=== PATIENT | female | born 1960 | race Caucasian/White ===

== ENCOUNTER 2018-06-19 19:22 | Emergency (ER) | payer OTHER ==
[~2018-06-19] VITALS: Ht 160 cm; Wt 101.5 kg
--- NOTE | 2018-06-19 19:57 | NUR ---
[facility]/ERYTHEMA AND SWELLING RIGHT SIDE OF FACE AT THE JAW. PT STATES IT LOOKED LIKE A PIMPLE YESTERDAY AND SWELLING INCREASED SINCE THEN.
[2018-06-19] MEDS ORDERED: AMLO1CAP15 PO (20:06)
[2018-06-19] MEDS ORDERED: OXYC10TA6 PO (20:06)
[2018-06-19] MEDS ORDERED: TRIA1CAP3 PO (20:06)
[2018-06-19] MEDS ORDERED: MORP30TA81 PO (20:06)
--- NOTE | 2018-06-19 20:10 | NUR ---
REPORT FROM MAKI SCHULTZ MD AT BEDSIDE. WAITING FOR ORDERS.
[2018-06-19] MEDS ORDERED: SULFAMETH./TRIMETHOPRIM DS 800MG/160MG TABLET ONE (20:21)
[2018-06-19] MEDS ORDERED: CEFTRIAXONE 1,000 MG ONE (20:21)
[2018-06-19] MEDS ORDERED: CEFTRIAXONE 1,000 MG IM ONE (20:30)
[2018-06-19] MEDS ORDERED: SULFAMETH./TRIMETHOPRIM DS 800MG/160MG TABLET PO ONE (20:30)
[2018-06-19 20:49] VITALS: BP 151/82
--- NOTE | 2018-06-19 20:51 | NUR ---
PT MEDICATED. VSS. PT TO BE DISCHARGED
--- NOTE | 2018-06-19 21:17 | NUR ---
Patient given discharge instructions and they have confirmed that they understand the instructions. Patient ambulatory with steady gait.
== END 2018-06-19 21:19 | disposition home or self-care (01) ==
LOC: ED 20:35
DX: L03.211 Cellulitis of face (principal); I10 Essential (primary) hypertension
CPT/HCPCS: 96372; 99284; J0696

== ENCOUNTER 2018-06-23 16:17 | Emergency (ER) | payer OTHER ==
[~2018-06-23] VITALS: Ht 160 cm; Wt 102.3 kg
[~2018-06-23 16:17] MED LIST: AMLO1CAP15 PO; MORP30TA81 PO; OXYC10TA6 PO; TRIA1CAP3 PO
[2018-06-23 17:04] LABS: BASOPHILS # (AUTO) 0.03 x10^3/uL (0-0.1); BASOPHILS % (AUTO) 1 % (0-1); EOSINOPHILS # (AUTO) 0.71 x10^3/uL (0-0.4); EOSINOPHILS % (AUTO) 10 % (1-7); LYMPHOCYTES # (AUTO) 2.53 x10^3/uL (1-3.4); LYMPHOCYTES % (AUTO) 34 % (22-44); MD NO; MEAN CORPUSCULAR HEMOGLOBIN 28.2 pg (27.0-34.8); MEAN CORPUSCULAR HGB CONC 32.4 g/dL (32.4-35.8); MEAN CORPUSCULAR VOLUME 87.1 fL (80-100); MEAN PLATELET VOLUME 7.1 fL (7.4-10.4); MONOCYTES # (AUTO) 0.58 x10^3/uL (0.2-0.8); MONOCYTES % (AUTO) 8 % (2-9); NEUTROPHILS # (AUTO) 3.51 x10^3/uL (1.8-6.8); NEUTROPHILS % (AUTO) 48 % (42-75); PLATELET COUNT 300 x10^3/uL (130-400); RED BLOOD COUNT 5.25 x10^6/uL (3.82-5.3); RED CELL DISTRIBUTION WIDTH 13.7 % (9.6-15.2)
[2018-06-23 17:13] LABS: ANION GAP 7 mmol/L (5-15); CALCIUM 9.2 mg/dL (8.5-10.1); CHLORIDE 106 mmol/L (98-107)
[2018-06-23 17:14] LABS: CREATININE 0.77 mg/dL (0.55-1.02)
--- NOTE | 2018-06-23 17:33 | NUR ---
FROM LOBBY TO ROOM AT THIS TIME
--- NOTE | 2018-06-23 17:35 | NUR ---
Pt ambulated to room from triage with steady gait and balance. NADN. No obvious defecits observed.
--- NOTE | 2018-06-23 19:13 | NUR ---
REPORT FROM NOVA LADD. ASSUMED CARE OF PATIENT AT THIS TIME.
--- NOTE | 2018-06-23 19:20 | NUR ---
VS UPDATED IN CHART, PATIENT HAVING 7/10 PAIN, MD AWARE. MEDICATIONS TO BE ADMINISTERED AFTER ORDER PUT IN CHART. FAMILY/PATIENT UPDATED ON POC. PATIENT SITTING IN GURNEY WATCHING TV WITH SPOUSE AT BEDSIDE, CALL LIGHT WITHIN REACH. AWAITING CT.
[2018-06-23] MEDS ORDERED: ONDANSETRON 2MG/ML, 2ML ONE (19:23)
[2018-06-23] MEDS ORDERED: MORPHINE SULFATE 4 MG/ML, 1ML ONE (19:23)
[2018-06-23 19:27] VITALS: BP 132/84
[2018-06-23] MEDS ORDERED: MORP30TA81 PO (19:29)
[2018-06-23] MEDS ORDERED: ONDANSETRON 2MG/ML, 2ML IVPush ONE (19:30)
[2018-06-23] MEDS ORDERED: MORPHINE SULFATE 4 MG/ML, 1ML IVPush PRN (19:30)
--- NOTE | 2018-06-23 19:30 | NUR ---
MEDICATIONS ADMINISTERED PER ORDER. NO ADDITIONAL NEEDS AT THIS TIME.
[2018-06-23] MEDS ORDERED: LIDOCAINE 1%, 10ML INFIL ONE (20:00)
[2018-06-23] MEDS ORDERED: LIDOCAINE-MPF 1%, 5ML ONE (20:07)
--- NOTE | 2018-06-23 20:18 | NUR ---
PA AT BEDSIDE FOR I&D.
--- NOTE | 2018-06-23 20:49 | NUR ---
Patient/Caregiver given discharge instructions and they have confirmed that they understand the instructions. Patient ambulatory with steady gait.
== END 2018-06-23 20:50 | disposition home or self-care (01) ==
LOC: ED 20:28
DX: L02.01 Cutaneous abscess of face (principal); L03.211 Cellulitis of face; I10 Essential (primary) hypertension
CPT/HCPCS: 36415; 70491; 80048; 85025; 96374; 96375; 99284; J2405; J3490

== ENCOUNTER 2019-08-04 12:40 | Outpatient (CLI) | payer BC ==
[~2019-08-04 12:40] MED LIST changes: -AMLO1CAP15 PO; +AMLO1CAP54 PO
[2019-08-04] MEDS ORDERED: FLUMAZENIL 0.1 MG/1 ML, 5ML ONE (13:20)
[2019-08-04] MEDS ORDERED: MIDAZOLAM 1 MG/ML, 5ML ONE (13:20)
[2019-08-04] MEDS ORDERED: NALOXONE 1 MG/ML, 2ML ONE (13:20)
[2019-08-04] MEDS ORDERED: FENTANYL PF 100 MCG/2ML ONE ×2 (13:20)
== END 2019-08-04 23:59 | disposition home or self-care (01) ==
LOC: RAD 12:40 → MERGE 12:40 → RAD 23:59
PROVIDERS: ATTEND Physician Assistant Surgical
DX: S83.241A Other tear of medial meniscus, current injury, right knee, initial encounter (principal); S83.242A Other tear of medial meniscus, current injury, left knee, initial encounter; M17.0 Bilateral primary osteoarthritis of knee; M25.462 Effusion, left knee; M25.461 Effusion, right knee; Z88.8 Allergy status to other drugs, medicaments and biological substances; X58.XXXA Exposure to other specified factors, initial encounter; Y93.89 Activity, other specified; Y92.89 Other specified places as the place of occurrence of the external cause; Y99.8 Other external cause status
CPT/HCPCS: 73721; 99156; 99157; J2250; J3010; J2310

== ENCOUNTER 2019-11-07 12:01 | Outpatient (CLI) | payer BC ==
[2019-11-07] MEDS ORDERED: FLUMAZENIL 0.1 MG/1 ML, 5ML ONE (12:37)
[2019-11-07] MEDS ORDERED: MIDAZOLAM 1 MG/ML, 5ML ONE ×2 (12:37)
[2019-11-07] MEDS ORDERED: FENTANYL PF 100 MCG/2ML ONE (12:37)
[2019-11-07] MEDS ORDERED: NALOXONE 1 MG/ML, 2ML ONE (12:37)
== END 2019-11-07 23:59 | disposition home or self-care (01) ==
LOC: RAD 12:01
PROVIDERS: ATTEND Orthopaedic Surgery
DX: M75.111 Incomplete rotator cuff tear or rupture of right shoulder, not specified as traumatic (principal); I10 Essential (primary) hypertension
CPT/HCPCS: 73221; 99156; 99157; J2250; J3010; J2310